=== PATIENT | male | born 1930 | race Caucasian/White ===

== ENCOUNTER 2017-09-04 16:03 | Emergency (ER) | payer OTHER, MEDICARE ==
[~2017-09-04 16:03] MED LIST: ACTOS15 MG PO; AMLODIPINE BESYL5 MG PO; CARBATROL-ER300 MG PO; COSOPT 0.5200 DROP/1 BOTH EYES; Colace PO; DIABETA,MICRON2.5 MG PO; DORZOLAMIDE-TIM10 ML LEFT EYE; GLUCOTROL5 MG PO; GLYBURIDE5 MG PO; KEPPRA500 MG PO; LIPITOR80 MG PO; LISINOPRIL20 MG PO; LISINOPRIL40 MG PO; LOVENOX40 MG/0.4 SC; LUMIGAN 0.50 DROP/2. BOTH EYES; LUMIGAN 0.50 DROP/22 LEFT EYE; Levaquin PO; METFORMIN HCL1000 MG PO; MULTIVITAMIN1 EAC1 PO; Norvasc PO; TEGRETOL-XR,CA100 MG PO; TIMOPTIC2.5 M1 BOTH EYES; ZESTRIL,PRINIVI20 MG PO; oxyCODONE PO
[2017-09-04 17:37] LABS: HEMATOCRIT 42.7 % (38.0-50.0); HEMOGLOBIN 15.2 G/DL (12.5-16.6); MCH 30.8 PG (29.0-34.0); MCHC 35.6 G/DL (30.0-36.0); MCV 86.6 FL (86-99); PLATELET COUNT 127 K/uL (156-360); RBC DIS.WIDTH-CV 12.6 % (11.8-14.6); RBC DIS.WIDTH-SD 39.3 % (39-53); RED BLOOD COUNT 4.93 M/uL (4.00-5.50); WHITE BLOOD COUNT 10.6 K/uL (4.1-10.2)
[2017-09-04 17:42] LABS: PTT 33.5 SEC (25-37)
[2017-09-04 17:47] LABS: ALBUMIN 4.3 g/dL (3.2-4.8); CHLORIDE 107 mEq/L (99-109); POTASSIUM 3.8 mEq/L (3.7-5.4); SODIUM 139 mEq/L (136-147)
[2017-09-04 17:49] LABS: GLUCOSE 226 mg/dL (70-99); TOTAL PROTEIN 7.3 g/dL (6.4-8.3)
[2017-09-04 17:51] LABS: TOTAL BILIRUBIN 0.7 mg/dL (0.0-1.0)
[2017-09-04 17:53] LABS: ALKALINE PHOSPHATASE 121 IU/L (3-129); CREATININE 0.8 mg/dL (0.6-1.3); GFR ESTIMATE (CALCULATED) > 59 mL/min/ (58.99-99999)
[2017-09-04 17:54] LABS: AST (GOT) 24 IU/L (2-34); UREA NITROGEN (BUN) 18 mg/dL (9-23)
[2017-09-04 17:56] LABS: ALT (GPT) 16 IU/L (3-49)
[2017-09-04 18:09] LABS: APPEARANCE CLEAR ((CLEAR)); BILIRUBIN NEGATIVE; BLOOD NEGATIVE; COLOR STRAW ((YELLOW)); GLUCOSE (STRIP) >=500; KETONES NEGATIVE; LEUKOCYTES NEGATIVE; NITRITE NEGATIVE; PROTEIN (STRIP) 100; SPECIFIC GRAVITY 1.015 (1.000-1.030); UROBILINOGEN 0.2 MG/DL (0.2-1.0)
[2017-09-04 18:17] LABS: BACTERIA RARE /HPF; EPITHELIAL CELLS NONE SEEN /HPF; MUCUS TRACE /LPF; UCUL ADDED? NO; WHITE BLOOD CELLS 0-5 /HPF (0-5)
== END 2017-09-04 19:08 | disposition short-term general hospital (02) ==
LOC: TRA 16:03
PROVIDERS: Emergency Medicine
DX: S12.100A Unspecified displaced fracture of second cervical vertebra, initial encounter for closed fracture (principal); S02.40DA Maxillary fracture, left side, initial encounter for closed fracture; S02.2XXA Fracture of nasal bones, initial encounter for closed fracture; S02.32XA Fracture of orbital floor, left side, initial encounter for closed fracture; S51.012A Laceration without foreign body of left elbow, initial encounter; S01.81XA Laceration without foreign body of other part of head, initial encounter; W18.30XA Fall on same level, unspecified, initial encounter; Y92.008 Other place in unspecified non-institutional (private) residence as the place of occurrence of the external cause; M25.531 Pain in right wrist; I10 Essential (primary) hypertension
CPT/HCPCS: 70450; 70486; 71045; 72125; 73070; 73100; 80048; 80053; 81003; 82150; 83690; 85025; 85027; 85610; 85730; 86850; 86900; 86901; 93005; 99281; 99285; G0480; J3010